=== PATIENT | male | born 1935 | race Caucasian/White ===

== ENCOUNTER → 2018-12-29 10:26 | Outpatient (CLI) | payer MEDICARE, OTHER, SELFPAY ==
--- NOTE | 2018-12-29 | DI.CT.S_ITS ---
PROCEDURE: CT CHEST WO CON INDICATIONS: ASTHMA BRONCHIECTASIS TECHNIQUE: Noncontrast 5 mm thick sections acquired from the pulmonary apices to the posterior costophrenic angles. 1 mm lung window, 5 mm thick coronal and sagittal and 7 mm axial MIP reformats were then acquired. For radiation dose reduction, the following was used: automated exposure control, adjustment of mA and/or kV according to patient size. COMPARISON: [facility], CT, THORAX WITH CONTRAST, 08/12/2006, 9:05. FINDINGS: Image quality: Excellent. Lungs and pleura: No acute consolidation is seen. There is ill-defined presumed scarring/atelectasis involving the right lung base although some areas of ill-defined 7 mm nodularity for example image 23 series 3 Sub-5 mm groundglass nodule seen in the right midlung unchanged, image 159. Biapical scarring also noted. There is central airway thickening. Mild right lower lobe bronchiolectasis. 3 mm nodule seen in the anterior left upper lobe is unchanged.. No pleural effusions or pneumothorax. Central and peripheral airways are patent and normal in caliber. Mediastinum: Heart size is normal. No pericardial effusion. Coronary artery calcifications are present. No mediastinal adenopathy by size criteria. Enlargement of the ascending thoracic aorta measuring 4.0 cm although can be within physiologic range. pulmonary arteries are normal in size. Esophagus is normal in caliber. No hiatal hernia. Bones and chest wall: No suspicious bony lesions. No vertebral body compression fractures. No axillary or supraclavicular adenopathy by size criteria. Thyroid gland negative. Abdomen: Visualized upper abdominal solid organs and bowel loops appear normal in the absence of contrast. Simple appearing left renal cysts. IMPRESSION: Scattered presumed postinflammatory scarring and atelectasis. Ill-defined nodular appearance could be scarring in the right lung base as above although recommend followup with three-month interval noncontrast chest CT given the absence of relevant comparison studies to exclude malignant or metastatic pulmonary nodule. Diffuse airway thickening, suggestive of reactive airways disease and/or nonspecific bronchitis. Coronary artery disease. Dictated by: Christ Cabrera M.D. on 12/29/2018 at 14:02 Approved by: Christ Cabrera M.D. on 12/29/2018 at 14:10
== END ==
PROVIDERS: Family Provider Family Medicine; PCP Family Medicine; Visit Provider Internal Medicine
DX: J47.1 Bronchiectasis with (acute) exacerbation (principal); J45.909 Unspecified asthma, uncomplicated; I25.10 Atherosclerotic heart disease of native coronary artery without angina pectoris
CPT/HCPCS: 71250

== ENCOUNTER → 2019-01-18 10:16 | Outpatient (CLI) | payer MEDICARE, OTHER, SELFPAY ==
--- NOTE | 2019-01-18 10:23 | DI.CT.S_ITS ---
PROCEDURE: CT SINUS SCREEN WO CON INDICATIONS: CHRONIC HEADACHES TECHNIQUE: Noncontrast 3.0 mm axial images acquired from the frontal sinuses to the mid-sella, with coronal and sagittal reformats. For radiation dose reduction, the following was used: automated exposure control, adjustment of mA and/or kV according to patient size. COMPARISON: None. FINDINGS: Image quality: Excellent. Maxillary Sinuses: Moderate mucosal thickening is seen within the right maxillary sinus with mild to moderate mucosal thickening seen on the left. There is mild demineralization seen of the medial grant of the maxillary sinuses. Ethmoid Air Cells: There is moderate mucosal thickening seen. There is demineralization of the grant of the ethmoid air cells. Sphenoid Sinuses: No bony remodeling or destruction. Minimal mucosal thickening is seen. Frontal Sinuses: No bony remodeling or destruction. Mild mucosal thickening is seen inferiorly. Ostiomeatal Complexes: Ostiomeatal complexes are opacified with soft tissue thickening. There is demineralization of the uncinate processes. Miscellaneous: Visualized intra-orbital contents are normal. No radha bullosa or paradoxical turbinate curvature. No nasal septal deviation. Likely polyps are seen within the right nasal cavity. IMPRESSION: Widespread paranasal sinus disease, which is most prominent within the right maxillary sinus. Areas of demineralization are seen, which are compatible with chronic sinusitis. Dictated by: Yamil Brady M.D. on 01/18/2019 at 10:36 Approved by: Yamil Brady M.D. on 01/18/2019 at 10:39
== END ==
PROVIDERS: Family Provider Family Medicine; PCP Family Medicine; Visit Provider Internal Medicine
DX: J34.9 Unspecified disorder of nose and nasal sinuses (principal)
CPT/HCPCS: 70486

== ENCOUNTER → 2019-03-01 13:34 | Outpatient (CLI) | payer MEDICARE, OTHER, SELFPAY ==
--- NOTE | 2019-03-01 | DI.CT.S_ITS ---
PROCEDURE: CT CHEST WO CON INDICATIONS: Pulmonary eosinophilia, not elsewhere classified TECHNIQUE: Noncontrast 2.0-2.5 mm thick sections acquired from the pulmonary apices to the posterior costophrenic angles. 7 mm thick axial MIP and 5 mm coronal and sagittal reformats were then acquired. A low radiation dose technique was utilized. COMPARISON: [facility], CT, THORAX WITH CONTRAST, 08/12/2006, 9:05. [facility], CT, CT CHEST WO CON, 12/29/2018, 11:03. FINDINGS: Image quality: Diagnostic, given the low radiation dose technique. Lungs and pleura: Stable appearance of 2 mm nodule left upper lobe pulmonary nodule image 82 series 3, probably dating back to 2006. Diffuse central airway thickening. Scattered subsegmental atelectasis and/or scarring. No focal consolidation. There is interval resolution of previously described ill-defined nodular appearance involving the right lung base therefore presumably reflecting resolved inflammatory etiology. No pleural effusion or pneumothorax. Mediastinum: Heart size is normal. No pericardial effusion. Coronary artery calcifications are present. No mediastinal adenopathy by size criteria. Thoracic aorta and central pulmonary arteries are normal in size. Esophagus is normal in caliber. No hiatal hernia. Bones and chest wall: No suspicious bony lesions. No vertebral body compression fractures. No axillary or supraclavicular adenopathy by size criteria. Thyroid gland unremarkable. Abdomen: A presumed simple appearing left renal cyst although not entirely included in the study and technically indeterminate IMPRESSION: Interval resolution of ill-defined right lung base nodular appearance therefore reflecting resolved inflammatory/infectious etiology since 12/29/18. No new focal consolidation. Scattered subsegmental scarring/atelectasis. Dictated by: Christ Cabrera M.D. on 03/01/2019 at 16:18 Approved by: Christ Cabrera M.D. on 03/01/2019 at 16:24
== END ==
PROVIDERS: Family Provider Family Medicine; PCP Family Medicine; Visit Provider Internal Medicine
DX: J82 Pulmonary eosinophilia, not elsewhere classified (principal); R91.1 Solitary pulmonary nodule
CPT/HCPCS: 71250

== ENCOUNTER → 2020-10-05 11:37 | Outpatient (CLI) | payer MEDICARE, OTHER, SELFPAY ==
[2020-10-05 19:04] LABS: Add Manual Diff / Slide Review NO; Basophils Absolute Auto 100 /uL (0-100); Eosinophils Absolute Auto 100 /uL (0-450); Eosinophils Percent Auto 1.8 % (2-4); Lymphocytes Absolute Auto 1700 /uL (1100-4500); Lymphocytes Percent Auto 26.7 % (25-40); Mean Corpuscular HGB Conc 32.6 % (30-36); Mean Corpuscular Hemoglobin 30.4 PG (26-34); Mean Corpuscular Volume 93.2 fL (80-100); Monocytes Absolute Auto 600 /uL (0-900); Monocytes Percent Auto 9.6 % (3-14); Neutrophils Absolute Auto 3800 /uL (1500-7000); Neutrophils Percent Auto 60.9 % (50-75); Platelet Count 322 X10^3/uL (150-400); Red Blood Cell Count 4.29 X10^6/uL (4.5-5.9); Red Cell Distribution Width 13.7 % (11.6-14.8); White Blood Cell Count 6.3 X10^3/uL (4.5-11.0)
[2020-10-05 19:09] LABS: Alanine Aminotransferase 16 IU/L (<50); Albumin 4.1 g/dL (3.5-5.0); Albumin Globulin Ratio 1.3 (1.0-2.8); Alkaline Phosphatase 60 U/L (38-126); Aspartate Aminotransferase 30 IU/L (17-59); BUN Creatinine Ratio 26.3 (6-22); Bilirubin Total 0.6 mg/dL (0.2-1.3); Blood Urea Nitrogen 25 mg/dL (9-20); Carbon Dioxide 28 mmol/L (22-32); Chloride 103 mmol/L (98-107); Cholesterol 200 mg/dL (140-199); Estimated Glomerular Filt Rate > 60.0 mL/min (>60); Globulin 3.1 g/dL (1.7-4.1); Glucose 79 mg/dL (80-110); HDL Cholesterol 84 mg/dL (40-60); HEMOLYSIS < 15 (0-50); LDL Cholesterol Calculated 107 mg/dL (<100); Potassium 5.2 mmol/L (3.4-5.1); Sodium 137 mmol/L (137-145); Total Protein 7.2 g/dL (6.3-8.2); Triglycerides 46 mg/dL (35-150)
[2020-10-08 11:02] LABS: Prostate Specific Antigen 2.99 ng/mL (0.10-4.00)
== END ==
PROVIDERS: Family Provider Family Medicine; PCP Family Medicine; Visit Provider Family Medicine
DX: I95.9 Hypotension, unspecified (principal); R35.1 Nocturia; R07.89 Other chest pain; R20.0 Anesthesia of skin; N40.1 Benign prostatic hyperplasia with lower urinary tract symptoms
CPT/HCPCS: 80053; 80061; 84153; 85025

== ENCOUNTER → 2020-11-27 09:30 | Outpatient (CLI) | payer MEDICARE, OTHER, SELFPAY ==
[2020-11-27 10:49] LABS: Add Manual Diff / Slide Review NO; Basophils Absolute Auto 100 /uL (0-100); Eosinophils Absolute Auto 200 /uL (0-450); Eosinophils Percent Auto 2.7 % (2-4); Hematocrit 39.6 % (41-53); Lymphocytes Absolute Auto 1800 /uL (1100-4500); Lymphocytes Percent Auto 26.2 % (25-40); Mean Corpuscular HGB Conc 32.9 % (30-36); Mean Corpuscular Hemoglobin 30.4 PG (26-34); Mean Corpuscular Volume 92.5 fL (80-100); Monocytes Absolute Auto 700 /uL (0-900); Monocytes Percent Auto 9.4 % (3-14); Neutrophils Absolute Auto 4100 /uL (1500-7000); Neutrophils Percent Auto 59.7 % (50-75); Platelet Count 303 X10^3/uL (150-400); Red Blood Cell Count 4.28 X10^6/uL (4.5-5.9); Red Cell Distribution Width 13.6 % (11.6-14.8); White Blood Cell Count 6.9 X10^3/uL (4.5-11.0)
== END ==
PROVIDERS: Family Provider Family Medicine; PCP Family Medicine; Referring Provider Allergy & Immunology; Visit Provider Allergy & Immunology
DX: J31.0 Chronic rhinitis (principal); J45.40 Moderate persistent asthma, uncomplicated; D72.19 Other eosinophilia
CPT/HCPCS: 36415; 85025

== ENCOUNTER → 2021-12-04 09:41 | Outpatient (CLI) | payer MEDICARE, OTHER, SELFPAY ==
[2021-12-04 20:37] LABS: Add Manual Diff / Slide Review NO; Basophils Absolute Auto 100 /uL (0-100); Basophils Percent Auto 1.1 % (0-2); Eosinophils Absolute Auto 200 /uL (0-450); Eosinophils Percent Auto 2.7 % (2-4); Hematocrit 37.3 % (41-53); Hemoglobin 12.4 g/dL (13.5-17.5); Lymphocytes Absolute Auto 1600 /uL (1100-4500); Mean Corpuscular HGB Conc 33.4 % (30-36); Mean Corpuscular Hemoglobin 30.6 PG (26-34); Mean Corpuscular Volume 91.7 fL (80-100); Monocytes Absolute Auto 600 /uL (0-900); Monocytes Percent Auto 10.3 % (3-14); Neutrophils Absolute Auto 3800 /uL (1500-7000); Neutrophils Percent Auto 60.9 % (50-75); Platelet Count 296 X10^3/uL (150-400); Red Blood Cell Count 4.07 X10^6/uL (4.5-5.9); White Blood Cell Count 6.2 X10^3/uL (4.5-11.0)
[2021-12-04 20:49] LABS: Hemoglobin A1C% w Est Avg Glu 5.2 % (4.0-6.0)
[2021-12-05 04:44] LABS: Alanine Aminotransferase 14 IU/L (<50); Albumin 4.1 g/dL (3.5-5.0); Albumin Globulin Ratio 1.6 (1.0-2.8); Alkaline Phosphatase 58 U/L (38-126); Aspartate Aminotransferase 28 IU/L (17-59); BUN Creatinine Ratio 22.3 (6-22); Bilirubin Total 0.8 mg/dL (0.2-1.3); Blood Urea Nitrogen 23 mg/dL (9-20); Calcium 9.1 mg/dL (8.4-10.2); Carbon Dioxide 26 mmol/L (22-32); Chloride 106 mmol/L (98-107); Cholesterol 171 mg/dL (140-199); Estimated Glomerular Filt Rate > 60 mL/min (>60); Globulin 2.6 g/dL (1.7-4.1); Glucose 89 mg/dL (80-110); HDL Cholesterol 76 mg/dL (40-60); HEMOLYSIS < 15 (0-50); LDL Cholesterol Calculated 87 mg/dL (<100); Potassium 4.8 mmol/L (3.4-5.1); Sodium 139 mmol/L (137-145); Total Protein 6.7 g/dL (6.3-8.2); Triglycerides 41 mg/dL (35-150)
[2021-12-05 05:53] LABS: Prostate Specific Antigen Scrn 2.75 ng/mL (0.1-4.0)
[2021-12-05 05:57] LABS: Ferritin 154 ng/mL (18-464)
[2021-12-05 06:12] LABS: Vitamin B12 925 pg/mL (239-931)
[2021-12-12 00:07] LABS: Percent Free Testosterone 1.35 % (1.50-4.20); Testosterone Free 4.85 ng/dL (5.00-21.00); Testosterone Total 359.5 ng/dL (264.0-916.0)
== END ==
PROVIDERS: Family Provider Family Medicine; PCP Physician Assistant; Visit Provider Physician Assistant
DX: N52.9 Male erectile dysfunction, unspecified (principal); E29.1 Testicular hypofunction; Z13.1 Encounter for screening for diabetes mellitus; Z12.5 Encounter for screening for malignant neoplasm of prostate; G62.9 Polyneuropathy, unspecified; R68.82 Decreased libido; Z13.220 Encounter for screening for lipoid disorders
CPT/HCPCS: 80053; 80061; 82607; 82728; 83036; 84402; 84403; 85025; G0103

== ENCOUNTER → 2021-12-23 11:06 | Outpatient (CLI) | payer MEDICARE, OTHER, SELFPAY ==
[2021-12-23 19:58] LABS: HEMOLYSIS < 15 (0-50); Iron 111 ug/dL (49-181)
[2021-12-23 20:10] LABS: Percent Iron Saturation 45 % (20-50); Total Iron Binding Capacity 248 ug/dL (261-462); Transferrin 198 mg/dL (206-381)
[2021-12-26 14:47] LABS: Albumin 3.9 g/dL (2.9-4.4); Alpha 1 Globulin 0.2 g/dL (0.0-0.4); Alpha 2 Globulin 0.6 g/dL (0.4-1.0); Beta 1 Globulin 0.9 g/dL (0.7-1.3); Protein, Total 6.7 g/dL (6.0-8.5)
== END ==
PROVIDERS: Family Provider Family Medicine; PCP Family Medicine; Visit Provider Family Medicine
DX: D64.9 Anemia, unspecified (principal); E29.1 Testicular hypofunction; G62.9 Polyneuropathy, unspecified; J82.83 Eosinophilic asthma; N52.9 Male erectile dysfunction, unspecified; R07.2 Precordial pain; R68.82 Decreased libido
CPT/HCPCS: 83540; 83550; 84155; 84165

== ENCOUNTER → 2022-02-18 09:46 | Outpatient (CLI) | payer MEDICARE, OTHER, SELFPAY ==
--- NOTE | 2022-02-18 09:49 | DI.NM.S_ITS ---
PROCEDURE: NM NAILA PERF SPECT REST & STR Rest and exercise myocardial perfusion SPECT with gated imaging and ejection fraction RADIOPHARMACEUTICAL: 12.9 mCi Tc-99m sestamibi IV at rest and 25.7 mCi Tc-99m sestamibi IV at peak exercise. A one day-protocol was performed. INDICATIONS: chest pain with exertion TECHNIQUE: Radiopharmaceutical was injected at peak stress test, and also at rest. SPECT images were obtained. SPECT myocardial perfusion images were displayed in short axis, horizontal long axis, and vertical long axis views. Gated images were reviewed using [employer] software. COMPARISON: None. CARDIAC STRESS: A standard Main treadmill exercise tolerance test was performed by the patient under the supervision of an attending staff. The patient exercised for 7 minutes and 1 seconds; functional aerobic impairment (GIACOMO) is -49%. Hemodynamic data: There is normal blood pressure and heart rate response to exercise stress. Patient achieved 87% of maximum predicted heart rate at peak exercise. Symptoms: Patient denied chest pain during exercise. EKG: No diagnostic EKG changes of ischemia; no ectopy. FINDINGS: Raw data: There is good myocardial labeling by radiotracer. No significant motion artifacts. Hgbg-[id number] ratio is 0.25 (normal is less than 0.38 for sestamibi tracer, and less than 0.50 for thallium tracer). Left ventricle function: Gated images demonstrate normal left ventricle wall thickening. No segmental wall motion abnormality. No transient ischemic dilation; TID is 0.98 (normal less than 1.3). The left ventricle resting end-diastolic volume is 88 mL. Left ventricle stress ejection fraction is 83%; normal values are above 45%. Myocardial perfusion: Mildly intense fixed inferior wall defect that resolves with prone imaging suggesting diaphragmatic attenuation artifact. No ischemia and no prior infarction. IMPRESSION: Low risk, normal treadmill nuclear stress test 1) No perfusion evidence of ischemia or infarction. Mildly intense fixed inferior wall defect that resolves with prone imaging suggesting diaphragmatic attenuation artifact. 2) Normal left ventricular size, wall motion, and systolic function (EF post stress 83%). 3) No angina during the study. 4) No ST changes with exercise. 5) Excellent exercise capacity (10.1METs, GIACOMO -49%). Target heart rate achieved. Appropriate BP response to exercise. 6) No prior nuclear stress test available for comparison. Dictated by: Lizbeth Cantu MD on 02/19/2022 at 13:38 Approved by: Lizbeth Cantu MD on 02/19/2022 at 13:41
[2022-02-18 11:37] LABS: COVID19 -Nasal RAPID Negative (Negative)
== END ==
PROVIDERS: Family Provider Family Medicine; PCP Family Medicine; Referring Provider Family Medicine; Visit Provider Family Medicine
DX: R07.2 Precordial pain (principal); G62.9 Polyneuropathy, unspecified; D64.9 Anemia, unspecified; J82.83 Eosinophilic asthma; N52.9 Male erectile dysfunction, unspecified; R68.82 Decreased libido; E29.1 Testicular hypofunction; Z20.822 Contact with and (suspected) exposure to COVID-19
CPT/HCPCS: 78452; 87635; 93017; A9502

== ENCOUNTER → 2022-03-24 11:48 | Outpatient (CLI) | payer MEDICARE, OTHER, SELFPAY ==
[2022-03-26 11:54] LABS: Fecal Immunochemical Test Negative (Negative)
== END ==
PROVIDERS: Family Provider Family Medicine; PCP Family Medicine; Visit Provider Family Medicine
DX: D64.9 Anemia, unspecified (principal); E29.1 Testicular hypofunction; G62.9 Polyneuropathy, unspecified; J82.83 Eosinophilic asthma; N52.9 Male erectile dysfunction, unspecified; R07.2 Precordial pain; R68.82 Decreased libido
CPT/HCPCS: 82274

== ENCOUNTER → 2022-05-05 15:25 | Outpatient (CLI) | payer MEDICARE, OTHER, SELFPAY ==
[2022-05-05 17:33] LABS: Add Manual Diff / Slide Review NO; Basophils Absolute Auto 200 /uL (0-100); Basophils Percent Auto 2.2 % (0-2); Eosinophils Absolute Auto 200 /uL (0-450); Eosinophils Percent Auto 2.3 % (2-4); Hematocrit 37.6 % (41-53); Hemoglobin 12.8 g/dL (13.5-17.5); Lymphocytes Absolute Auto 2000 /uL (1100-4500); Lymphocytes Percent Auto 27.1 % (25-40); Mean Corpuscular Hemoglobin 31.2 PG (26-34); Mean Corpuscular Volume 91.6 fL (80-100); Monocytes Absolute Auto 600 /uL (0-900); Monocytes Percent Auto 7.7 % (3-14); Neutrophils Absolute Auto 4500 /uL (1500-7000); Neutrophils Percent Auto 60.7 % (50-75); Platelet Count 328 X10^3/uL (150-400); White Blood Cell Count 7.4 X10^3/uL (4.5-11.0)
[2022-05-05 18:52] LABS: C-Reactive Protein Quant < 0.5 mg/dL (<1.0)
[2022-05-05 19:55] LABS: HIV 1 & 2 Ab/Ag 4th Gen Combo NEGATIVE (NEGATIVE); Hep C Virus Ab w/Reflex Quant NEGATIVE s/c (NEGATIVE)
[2022-05-05 21:10] LABS: Erythrocyte Sedimentation Rate 8 MM/HR (0-15)
[2022-05-06 16:33] LABS: Prostate Specific Antigen Scrn 3.63 ng/mL (0.1-4.0)
[2022-05-06 17:51] LABS: Free T4, Direct Thyroxine 1.26 ng/dL (0.78-2.19)
[2022-05-07 17:24] LABS: Arsenic 1 ug/L (0-9); Mercury, Blood 1.9 ug/L (0.0-14.9)
[2022-05-08 13:47] LABS: ANA Screen, IFA Negative (.)
[2022-05-10 13:22] LABS: Vitamin B6 12.7 ug/L (3.4-65.2)
[2022-05-14 13:27] LABS: Percent Free Testosterone 3.06 % (1.50-4.20); Testosterone Free 20.58 ng/dL (5.00-21.00); Testosterone Total 672.7 ng/dL (264.0-916.0)
== END ==
PROVIDERS: Family Provider Family Medicine; PCP Family Medicine; Referring Provider Family Medicine; Visit Provider Family Medicine
DX: D64.9 Anemia, unspecified (principal); N52.9 Male erectile dysfunction, unspecified; Z12.5 Encounter for screening for malignant neoplasm of prostate; E29.1 Testicular hypofunction; G62.9 Polyneuropathy, unspecified; R68.82 Decreased libido
CPT/HCPCS: 36415; 82175; 83655; 83825; 84207; 84402; 84403; 84439; 85025; 85651; 86038; 86140; 86617; 86803; 87389; G0103

== ENCOUNTER → 2023-02-16 13:41 | Outpatient (CLI) | payer MEDICARE, OTHER, SELFPAY ==
[2023-02-16 19:36] LABS: Add Manual Diff / Slide Review NO; Basophils Absolute Auto 100 /uL (0-100); Basophils Percent Auto 1.1 % (0-2); Eosinophils Absolute Auto 100 /uL (0-450); Eosinophils Percent Auto 0.9 % (2-4); Hematocrit 38.5 % (41-53); Hemoglobin 12.8 g/dL (13.5-17.5); Lymphocytes Absolute Auto 1400 /uL (1100-4500); Lymphocytes Percent Auto 19.5 % (25-40); Mean Corpuscular HGB Conc 33.3 % (30-36); Mean Corpuscular Hemoglobin 30.7 PG (26-34); Mean Corpuscular Volume 92.2 fL (80-100); Monocytes Absolute Auto 500 /uL (0-900); Monocytes Percent Auto 7.8 % (3-14); Neutrophils Absolute Auto 4900 /uL (1500-7000); Neutrophils Percent Auto 70.7 % (50-75); Platelet Count 284 X10^3/uL (150-400); Red Blood Cell Count 4.18 X10^6/uL (4.5-5.9)
[2023-02-16 20:02] LABS: Alanine Aminotransferase 16 IU/L (<50); Albumin 4.2 g/dL (3.5-5.0); Albumin Globulin Ratio 1.6 (1.0-2.8); Alkaline Phosphatase 52 U/L (38-126); Aspartate Aminotransferase 25 IU/L (17-59); BUN Creatinine Ratio 17.8 (6-22); Bilirubin Total 0.6 mg/dL (0.2-1.3); Blood Urea Nitrogen 18 mg/dL (9-20); Calcium 9.8 mg/dL (8.4-10.2); Carbon Dioxide 28 mmol/L (22-32); Chloride 101 mmol/L (98-107); Cholesterol 172 mg/dL (140-199); Estimated Glomerular Filt Rate > 60 mL/min (>60); Globulin 2.7 g/dL (1.7-4.1); Glucose 89 mg/dL (80-110); HDL Cholesterol 75 mg/dL (40-60); HEMOLYSIS < 15 (0-50); LDL Cholesterol Calculated 83 mg/dL (<100); Potassium 5.2 mmol/L (3.4-5.1); Sodium 137 mmol/L (137-145); Total Protein 6.9 g/dL (6.3-8.2); Triglycerides 68 mg/dL (35-150)
[2023-02-16 20:16] LABS: TSH w/ Reflex to FT4 2.23 uIU/mL (0.47-4.68)
[2023-02-16 20:31] LABS: Prostate Specific Antigen 2.68 ng/mL (0.10-4.00)
[2023-02-24 15:34] LABS: Percent Free Testosterone 1.52 % (1.50-4.20); Testosterone Free 7.88 ng/dL (5.00-21.00); Testosterone Total 518.5 ng/dL (264.0-916.0)
== END ==
PROVIDERS: Family Provider Family Medicine; PCP Family Medicine; Visit Provider Family Medicine
DX: R35.1 Nocturia (principal); I25.10 Atherosclerotic heart disease of native coronary artery without angina pectoris; I10 Essential (primary) hypertension; E29.1 Testicular hypofunction; I48.91 Unspecified atrial fibrillation; J82.83 Eosinophilic asthma; D64.9 Anemia, unspecified; N52.9 Male erectile dysfunction, unspecified; G62.9 Polyneuropathy, unspecified; M54.2 Cervicalgia; G89.29 Other chronic pain; R68.82 Decreased libido; Z79.890 Hormone replacement therapy; Z87.438 Personal history of other diseases of male genital organs
CPT/HCPCS: 80053; 80061; 84153; 84402; 84403; 84443; 85025

== ENCOUNTER → 2023-08-12 11:04 | Outpatient (CLI) | payer MEDICARE, OTHER, SELFPAY ==
--- NOTE | 2023-08-12 11:30 | DI.MRI.S_ITS ---
PROCEDURE: MR CERVICAL SPINE WO CON INDICATIONS: cervical radiuculopathy TECHNIQUE: Noncontrast sagittal T1 spin echo and T2 fast spin echo, sagittal STIR, foraminal oblique sagittal T2 fast spin echo, and axial gradient echo or T2 fast spin echo through the cervical spine. COMPARISON: None. FINDINGS: Image quality: Excellent. Alignment and Curvature: Straightening of the normal cervical lordosis. Minimal anterolisthesis of C7 on T1 and T1 on T2. Bone Marrow: Ankylosis of the C4 through C6 vertebral bodies. Modic type 3 degenerative endplate changes at C6-C7. Marrow demonstrates normal overall signal. Spinal Cord: Visualized spinal cord has normal size and signal. No cerebellar tonsillar herniation. Paraspinous Soft Tissues: No paravertebral masses. Prevertebral soft tissues are normal in thickness. C2-C3: Disc desiccation height loss. Minimal posterior disc osteophyte complex. No central canal stenosis. Facet and uncovertebral arthropathy. Moderate right and mild left neural foraminal stenosis. C3-C4: Disc desiccation height loss. Posterior disc osteophyte complex. Mild central canal stenosis. Facet and uncovertebral arthropathy. Severe right and moderate left neural foraminal stenosis. C4-C5: Ankylosis. No central canal stenosis. Facet and uncovertebral arthropathy. Mild bilateral neural foraminal stenosis. C5-C6: Ankylosis. No central canal stenosis. Facet and uncovertebral arthropathy. Mild bilateral neural foraminal stenosis. C6-C7: Disc desiccation height loss. Minimal posterior disc osteophyte complex. No significant central canal stenosis. Facet and uncovertebral arthropathy. Moderate left and mild right neural foraminal stenosis. C7-T1: Disc desiccation and height loss. No central canal stenosis. Facet and uncovertebral arthropathy. Moderate right and mild left neural foraminal stenosis. IMPRESSION: 1. Multilevel degenerative changes of the cervical spine as described above. 2. Mild central canal stenosis at C3-C4. Otherwise, no significant central canal stenosis. 3. Severe neural foraminal stenosis on the right at C3-C4. Additional levels of mild and moderate neural foraminal stenosis as above. Dictated by: Aayush Blue M.D. on 08/12/2023 at 14:40 Approved by: Aayush Blue M.D. on 08/12/2023 at 14:45
== END ==
LOC: MRI 11:05
PROVIDERS: Family Provider Family Medicine; PCP Family Medicine; Referring Provider Family Medicine; Visit Provider Family Medicine
DX: M47.22 Other spondylosis with radiculopathy, cervical region; M48.02 Spinal stenosis, cervical region; M54.2 Cervicalgia; G89.29 Other chronic pain
CPT/HCPCS: 72141

== ENCOUNTER → 2024-03-25 08:38 | Outpatient (CLI) | payer MEDICARE, OTHER, SELFPAY ==
--- NOTE | 2024-03-25 | DI.CT.S_ITS ---
PROCEDURE: CT CHEST ABD PEL W CON INDICATIONS: Abnormal weight loss TECHNIQUE: After the administration of intravenous contrast, 5 mm thick sections acquired from the lung apices to the symphysis. 5 mm coronal and sagittal reformats were performed, with additional 7 mm MIP reformats through the lungs. For radiation dose reduction, the following was used: automated exposure control, adjustment of mA and/or kV according to patient size. COMPARISON: [facility], CT, CT CHEST WO CON, 03/01/2019, 13:38. FINDINGS: Image quality: Diagnostic CHEST: Lower Neck: No enlarged lymph nodes. Thyroid: No thyroid nodules which require sonographic follow up, per consensus guidelines. Axillae: No enlarged lymph nodes. Chest Wall: Unremarkable. Lungs and Pleura: 5 mm nodule within the medial left lung apex (series 5, image 53) is unchanged compared to previous chest CT dating back to 03/01/2019. Collapse of the medial segment the right middle lobe with inspissated material within the associated central right middle lobe bronchus. Similar appearance with endobronchial soft tissue opacifying the medial and lateral segmental bronchi of right middle lobe was also demonstrated on 03/01/[address] There is slightly improved aeration within these bronchi compared to the previous study, however, peripherally could the medial segment of the right middle lobe is completely collapsed with associated volume loss. Area of tree-in-bud micronodularity within the posterolateral right upper lobe (series 5, image 128) No new pulmonary nodules or masses. No evidence of pneumothorax or pleural effusion. Heart: Heart size is normal. No pericardial effusion. Moderate degree of coronary artery vascular calcifications. Thoracic Vessels: Mild ectasia of the ascending aorta measuring 4.1 cm in greatest diameter. Remainder of the thoracic aorta appears unremarkable. Pulmonary artery is normal in caliber without central intraluminal filling defect. Mediastinum and Vangie: No enlarged lymph nodes. Esophagus: No wall thickening. No hiatal hernia. ABDOMEN: Liver: No solid mass. Gallbladder: No radiopaque gallstones or wall thickening. Biliary ducts: No biliary dilation. Pancreas: No focal mass lesion. Mild prominence of pancreatic duct measuring 3-4 mm in greatest diameter. No inflammatory changes. Spleen: Size is within normal limits. Adrenal Glands: No adrenal nodules. Kidneys and Ureters: No hydronephrosis. No solid mass. No complex renal cystic lesion which requires follow up. Stomach and Bowel: Small large bowel appear normal in caliber without evidence of bowel obstruction. Extensive diverticulosis the sigmoid colon without evidence of diverticulitis Peritoneum: No abnormal intraperitoneal fluid. No free air. Ventral Wall: Small umbilical hernia containing fat. Abdominal Nodes: No retroperitoneal or mesenteric adenopathy by size criteria. Vessels: Aorta and inferior vena cava are normal in size. PELVIS: Pelvic Organs: Moderate prostatomegaly. Bladder: Mild degree of diffuse bladder wall thickening possibly sequelae of bladder outlet obstruction. Pelvic Nodes: No enlarged lymph nodes. Miscellaneous: Small right femoral hernia containing loop of nonobstructed small bowel. Bones: No aggressive osseous abnormality. Left L5 pars defect. IMPRESSION: 1. Collapse of the medial segment right middle lobe associated with endobronchial inspissated soft tissue and additional inspissated material throughout the central right middle lobe bronchi with slightly improved aeration of the lateral segment compared to prior chest CT of 03/01/2019. Findings possibly related to chronic aspiration or inflammatory or infectious bronchitis. And underlying endobronchial mass in this location is not entirely excluded and if indicated, correlation with bronchoscopy is advised. 2. Tree-in-bud opacity within the posterolateral right upper lobe most likely respiratory bronchiolitis. 3. Extensive diverticulosis of the sigmoid colon without evidence of diverticulitis. No acute abnormality within the abdomen or pelvis. Dictated by: Ermias Marshall M.D. on 03/25/2024 at 15:09 Approved by: Ermias Marshall M.D. on 03/25/2024 at 15:40
[2024-03-25 09:16] LABS: Estimated Glomerular Filt Rate > 60 mL/min (>60)
== END ==
PROVIDERS: Radiology Vascular & Interventional Radiology; PCP Family Medicine; Referring Provider Internal Medicine; Visit Provider Internal Medicine
DX: J98.19 Other pulmonary collapse (principal); K57.30 Diverticulosis of large intestine without perforation or abscess without bleeding; R63.4 Abnormal weight loss; R91.1 Solitary pulmonary nodule; I25.10 Atherosclerotic heart disease of native coronary artery without angina pectoris; K42.9 Umbilical hernia without obstruction or gangrene; N40.0 Benign prostatic hyperplasia without lower urinary tract symptoms; K41.90 Unilateral femoral hernia, without obstruction or gangrene, not specified as recurrent
CPT/HCPCS: 36415; 71260; 74177; 82565; Q9967

== ENCOUNTER 2024-06-16 09:02 | Outpatient (CLI) | payer MEDICARE, OTHER, SELFPAY ==
[2024-06-16] VITALS (8 sets, daily range): BP systolic 115–145; BP diastolic 67–82; PULSE 60–69; RESP 16–21; TEMP 36; O2SAT 95–100
--- NOTE | 2024-06-16 09:03 | DI.RAD.S_ITS ---
PROCEDURE: PAIN C/T INTERLAMINAR INJECT INDICATIONS: C6/7 TL DENI COMPARISON: None. FINDINGS/IMPRESSION: Fluoroscopic spot filming was performed to verify placement of spinal needles at the C6-7 level(s), as labeled on the films. Appropriate location(s) of the needle tip(s) was confirmed by injection of iodinated contrast. Dictated by: Lucas Castellano M.D. on 06/16/2024 at 11:35 Approved by: Lucas Castellano M.D. on 06/16/2024 at 11:36
[2024-06-16] MEDS: MIDAZOLAM 2 MG/2 ML VIAL 1 MG IV (09:37)
[2024-06-16] MEDS: iopamidoL 15 ML VIAL 3 ML INJ (09:41)
[2024-06-16] MEDS: BUPIVACAINE 0.25% (PF) VIAL 2 ML INJ (09:41)
[2024-06-16] MEDS: DEXAMETHASONE 10 MG/ML VIAL 20 MG INJ (09:42)
--- NOTE | 2024-06-16 09:53 | P.PCN_ITS ---
Date/Time/Diagnoses Date of procedure: 06/16/24 Time of procedure: 09:53 Pre-procedure diagnosis: 1. CERVICAL STENOSIS, 2. CERVICAL HNP WITH UPPER EXTREMITY RADICULAR FEATURES Post-procedure diagnosis: same Procedure Notes Procedure: 1. FLUORSCOPICALLY GUIDED CONTRAST CONTROLLED INTERLAMINAR EPIDURAL STEROID INJECTION - C6/7 TL DENI Indications: Marco A is referred by Dr. Bashir for treatment of Cervical HNP with Upper Extremity Paresthesias. Physician: Juan Ballard Total Fluoroscopy time (seconds): 28 Total sedation minutes: 12 Complications: none Procedure in detail & Post-procedure care: FINDINGS Cervical Stenosis due to disc deterioration and nerve root irritation and nerve root irritation DESCRIPTION OF PROCEDURE Fluoroscopically guided, contrast-controlled C6/7 translaminar epidural steroid injection with conscious sedation. Following review of allergy and review of potential side effects and complications, including, but not necessarily limited to, infection, allergic reaction, local tissue breakdown, temporary as well as permanent nerve injury, stroke, paralysis, and possible , the patient indicated that patient understood and agreed to proceed. An informed consent document was signed by the patient, witnessed by a nurse, and placed in the patient's chart. Additionally, other treatment options including modalities, medications, and physical therapy were reviewed with the patient. After review of previous anaesthesic history and IV conscious sedation the patient was deemed safe to proceed with today?s procedure with IV conscious sedation as ASA class II designation. Safety time-out was performed to confirm patient ID, procedure to be performed and site of procedure. IV sedation was accomplished with a combination of 2mg of Versed administered by the RN after DO order, titrated to patient comfort during the course of the procedure while the patient remained responsive to all verbal commands. In the prone position, following sterile prep and drape of the cervical region, the C6/7 translaminar space was identified fluoroscopically. The skin was anesthetized via a 25-gauge 1.5-inch needle with 1% lidocaine solution. At this point, a 25-gauge, 2.5-inch short bevel spinal needle was atraumatically introduced and advanced under fluoroscopic guidance into epidural space at the C6/7 translaminar space. Depth was confirmed on lateral view. Radiological data, including multiple fluoroscopic views of the cervical spine, reveal a spinal needle at the C6/7 translaminar space. Lateral views then show placement of the needle in the epidural space. Subsequent views show contrast material flowing superiorly and inferiorly in the epidural space. DSA fluoroscopy with live contrast injection, once again, confirmed no vascular or intrathecal uptake. At this point, using loss of resistance technique with saline and air, the epidural space was entered. Following negative aspiration, injection of approximately 1.5 cc of Isovue-200 with live fluoroscopy in the AP view confirmed epidural flow in the epidural space without vascular or intrathecal uptake observed. Subsequently, a test dose of 1 cc of 1% lidocaine solution was injected and patient was observed for two minutes without signs or symptoms of complications, including abdominal pain, shortness of breath, bilateral upper or lower extremity weakness, nausea and vomiting, prior to steroid injection. At this point, 2cc or 20mg of dexamethasone was then injected without incident. The patient tolerated the procedure well without signs or symptoms of comp lications prior to being transferred to the recovery area for further monitoring, The patient was then transferred to the recovery area where they were observed for an appropriate period of time after the injection. The patient reported a VAS score of 7 prior to the procedure and a post-procedure VAS of 1. POST OP INSTRUCTIONS The patient was provided a Pain Log to continue to record their response to the target-specific procedure prior to follow-up visit with the referring provider. Additionally, specific post-injection care instructions and a contact number to our office were provided if concerns arise regarding possible complications associated with the procedure are suspected.
--- NOTE | 2024-06-16 10:32 | PC.NURSE ---
patient encouraged to see his PCP for his unspecified arrythmia LACY per Dr. Ballard
== END 2024-06-16 10:13 | disposition home or self-care (01) ==
PROVIDERS: PCP Family Medicine; Referring Provider Physical Medicine & Rehabilitation; Visit Provider Physical Medicine & Rehabilitation
DX: M48.02 Spinal stenosis, cervical region (principal); M50.123 Cervical disc disorder at C6-C7 level with radiculopathy
CPT/HCPCS: 62321; 99152; J1100; J2250; J3490

== ENCOUNTER → 2024-08-12 10:07 | Outpatient (CLI) | payer MEDICARE, OTHER, SELFPAY ==
[2024-08-12 18:08] LABS: Add Manual Diff / Slide Review NO; Basophils Absolute Auto 100 /uL (0-100); Basophils Percent Auto 1.5 % (0-2); Eosinophils Absolute Auto 100 /uL (0-450); Eosinophils Percent Auto 1.7 % (2-4); Hematocrit 41.6 % (41-53); Lymphocytes Absolute Auto 1400 /uL (1100-4500); Lymphocytes Percent Auto 21.7 % (25-40); Mean Corpuscular HGB Conc 33.7 % (30-36); Mean Corpuscular Hemoglobin 31.4 PG (26-34); Mean Corpuscular Volume 93.4 fL (80-100); Monocytes Absolute Auto 600 /uL (0-900); Monocytes Percent Auto 9.3 % (3-14); Neutrophils Absolute Auto 4200 /uL (1500-7000); Neutrophils Percent Auto 65.8 % (50-75); Platelet Count 260 X10^3/uL (150-400); Red Blood Cell Count 4.46 X10^6/uL (4.5-5.9); Red Cell Distribution Width 13.7 % (11.6-14.8); White Blood Cell Count 6.4 X10^3/uL (4.5-11.0)
[2024-08-12 18:11] LABS: Alanine Aminotransferase 15 IU/L (<50); Albumin 4.8 g/dL (3.5-5.0); Albumin Globulin Ratio 1.7 (1.0-2.8); Alkaline Phosphatase 61 U/L (38-126); Aspartate Aminotransferase 29 IU/L (17-59); BUN Creatinine Ratio 23.5 (6-22); Blood Urea Nitrogen 24 mg/dL (9-20); Calcium 9.9 mg/dL (8.4-10.2); Carbon Dioxide 25 mmol/L (22-32); Chloride 104 mmol/L (98-107); Cholesterol 218 mg/dL (140-199); Estimated Glomerular Filt Rate > 60 mL/min (>60); Globulin 2.8 g/dL (1.7-4.1); Glucose 85 mg/dL (80-110); HDL Cholesterol 97 mg/dL (40-60); HEMOLYSIS 21 (0-50); LDL Cholesterol Calculated 110 mg/dL (<100); Potassium 5.3 mmol/L (3.4-5.1); Sodium 138 mmol/L (137-145); Total Protein 7.6 g/dL (6.3-8.2); Triglycerides 54 mg/dL (35-150)
[2024-08-12 18:42] LABS: Prostate Specific Antigen Scrn 2.53 ng/mL (0.1-4.0)
[2024-08-23 00:38] LABS: Percent Free Testosterone 2.22 % (1.50-4.20); Testosterone Free 9.88 ng/dL (5.00-21.00); Testosterone Total 444.9 ng/dL (264.0-916.0)
== END ==
PROVIDERS: PCP Family Medicine; Visit Provider Family Medicine
DX: D64.9 Anemia, unspecified (principal); Z12.5 Encounter for screening for malignant neoplasm of prostate; I10 Essential (primary) hypertension; R68.82 Decreased libido; E29.1 Testicular hypofunction; Z13.220 Encounter for screening for lipoid disorders; Z71.85 Encounter for immunization safety counseling; Z13.6 Encounter for screening for cardiovascular disorders; N52.9 Male erectile dysfunction, unspecified; Z13.1 Encounter for screening for diabetes mellitus; G62.9 Polyneuropathy, unspecified
CPT/HCPCS: 80053; 80061; 84402; 84403; 85025; G0103

== ENCOUNTER 2024-08-23 08:59 | Outpatient (CLI) | payer MEDICARE, OTHER, SELFPAY ==
[2024-08-23] VITALS (8 sets, daily range): BP systolic 118–152; BP diastolic 72–80; PULSE 58–67; RESP 13–18; TEMP 36.4; O2SAT 97–100
[2024-08-23] MEDS: MIDAZOLAM 2 MG/2 ML VIAL 1 MG IV (09:51)
[2024-08-23] MEDS: DEXAMETHASONE 10 MG/ML VIAL 20 MG INJ (10:02)
[2024-08-23] MEDS: BUPIVACAINE 0.5% (PF) 10 ML VIAL 2 ML INJ (10:02)
[2024-08-23] MEDS: iopamidoL 15 ML VIAL 3 ML INJ (10:03)
--- NOTE | 2024-08-23 10:11 | P.PCN_ITS ---
Date/Time/Diagnoses Date of procedure: 08/23/24 Time of procedure: 10:11 Pre-procedure diagnosis: 1. FACET ARTHROPATHY 2. AXIAL NECK PAIN Post-procedure diagnosis: same Procedure Notes Procedure: 1. FLUOROSCOPICALLY GUIDED, CONTRAST-CONTROLLED LEFT C3/4 AND C6/7 FACET JOINT INJECTIONS WITH CONSCIOUS SEDATION. Indications: Marco A is referred by Dr. Bashir for treatment of Axial Neck Pain Physician: Juan Ballard Total Fluoroscopy time (seconds): 12 Total sedation minutes: 15 Complications: none Procedure in detail & Post-procedure care: DESCRIPTION OF PROCEDURE Fluoroscopically guided, contrast-controlled left C3/4 and C6/7 facet joint injections with conscious sedation. Following review of allergy and review of potential side effects and complications, including, but not necessarily limited to, infection, allergic reaction, local tissue breakdown, stroke, temporary or permanent nerve injury and paralysis, the patient indicated that the patient understood and agreed to proceed. An informed consent document was signed by the patient, witnessed by a nurse, and placed in the patient's chart. Additionally, other treatment options including medications, modalities, and physical therapy were reviewed with the patient. After review of previous anaesthesic history and IV conscious sedation the patient was deemed safe to proceed with today?s procedure with IV conscious sedation as ASA class II designation. Safety time-out was performed to confirm patient ID, procedure to be performed and site of procedure. IV sedation was accomplished with a combination of 1mg of Versed was administered by the RN after DO order, titrated to patient comfort during the course of the procedure while the patient remained responsive to all verbal commands In the prone position, following sterile prep and drape of the cervical spine region, the posterior aspect of the left C3/4 and C6/7 facet joints were identified fluoroscopically. The skin was anesthetized via a 25-gauge 1.5-inch needle with 1% lidocaine solution into the corresponding facet joints. At this point, a 25-gauge 2.5-inch spinal needle was atraumatically introduced and advanced under fluoroscopic guidance into the corresponding facet joints. Following negative aspiration, injections of approximately 0.2cc of Isovue 200 confirmed interarticular placement without vascular uptake. At this point, a total of 1cc including 0.5cc or 5mg of dexamethasone combined with 0.5cc of 1% lidocaine solution was injected without complication into each of the corresponding facet joints. The procedure tolerated the procedure well without signs or symptoms of complications prior to transfer to the recovery area continued monitoring without incident. The patient was then transferred to the recovery area where they were observed for an appropriate period of time after the injection. The patient reported a VAS score of 7 prior to the procedure and a post- procedure VAS of 0. POST OP INSTRUCTIONS They were provided a Pain Log to continue to record their response to the target-specific procedure prior to their follow-up visit with their referring physician. Additionally, specific post-injection care instructions and a contact number to our office were provided if concerns arise regarding possible complications associated with the procedure are suspected.
== END 2024-08-23 10:28 | disposition home or self-care (01) ==
LOC: RAD 08:59
PROVIDERS: PCP Family Medicine; Referring Provider Physical Medicine & Rehabilitation; Visit Provider Physical Medicine & Rehabilitation
DX: M47.812 Spondylosis without myelopathy or radiculopathy, cervical region (principal)
CPT/HCPCS: 64490; 64491; 99152; J1100; J2250

== ENCOUNTER → 2024-08-31 11:00 | Outpatient (CLI) | payer MEDICARE, OTHER, SELFPAY ==
[2024-08-31 18:55] LABS: Add Manual Diff / Slide Review NO; Basophils Absolute Auto 100 /uL (0-100); Basophils Percent Auto 1.3 % (0-2); Eosinophils Absolute Auto 100 /uL (0-450); Eosinophils Percent Auto 1.7 % (2-4); Hematocrit 39.1 % (41-53); Hemoglobin 13.2 g/dL (13.5-17.5); Lymphocytes Absolute Auto 1500 /uL (1100-4500); Lymphocytes Percent Auto 19.9 % (25-40); Mean Corpuscular HGB Conc 33.7 % (30-36); Mean Corpuscular Hemoglobin 31.7 PG (26-34); Monocytes Absolute Auto 700 /uL (0-900); Monocytes Percent Auto 9.5 % (3-14); Neutrophils Absolute Auto 5200 /uL (1500-7000); Neutrophils Percent Auto 67.6 % (50-75); Platelet Count 243 X10^3/uL (150-400); Red Blood Cell Count 4.16 X10^6/uL (4.5-5.9); Red Cell Distribution Width 13.7 % (11.6-14.8); White Blood Cell Count 7.8 X10^3/uL (4.5-11.0)
[2024-08-31 19:48] LABS: Prostate Specific Antigen Scrn 2.69 ng/mL (0.1-4.0)
[2024-09-13 09:09] LABS: Testosterone Free 19.46 ng/dL (5.00-21.00); Testosterone Total 778.3 ng/dL (264.0-916.0)
== END ==
PROVIDERS: PCP Family Medicine; Visit Provider Family Medicine
DX: Z12.5 Encounter for screening for malignant neoplasm of prostate (principal); Z51.81 Encounter for therapeutic drug level monitoring; Z79.890 Hormone replacement therapy
CPT/HCPCS: 84402; 84403; 85025; G0103

== ENCOUNTER → 2024-11-21 14:46 | Outpatient (CLI) | payer MEDICARE, OTHER, SELFPAY ==
--- NOTE | 2024-11-21 14:48 | DI.CT.S_ITS ---
PROCEDURE: CT CHEST WO CON INDICATIONS: GROUND GLASS OPACITY ON IMAGING OF LUNG TECHNIQUE: Noncontrast 5 mm thick sections acquired from the pulmonary apices to the posterior costophrenic angles. 1 mm lung window, 5 mm thick coronal and sagittal and 7 mm axial MIP reformats were then acquired. For radiation dose reduction, the following was used: automated exposure control, adjustment of mA and/or kV according to patient size. COMPARISON: [facility], CT, CT CHEST WO CON, 03/01/2019, 13:38. [facility], CT, CT CHEST ABD PEL W CON, 03/25/2024, 10:18. FINDINGS: Image quality: Diagnostic. Lower Neck: No enlarged lymph nodes. Thyroid: No thyroid nodules which require sonographic follow up, per consensus guidelines. Axillae: No enlarged lymph nodes. Chest Wall: Unremarkable. Bones: Unremarkable. Lungs and Pleura: No pneumothorax or pleural effusions. There is stable degree of advanced partial right middle lobe collapse, with stable attenuation of the right middle lobar bronchi centrally. No new focal lesion seen. Heart: Heart size is normal. No pericardial effusion. Thoracic Vessels: Top-normal caliber of the ascending aorta measuring 4 cm. Mediastinum and Vangie: No enlarged lymph nodes. Esophagus: No wall thickening. No hiatal hernia. Upper Abdomen: Visualized upper abdomen solid organs and bowel loops appear normal. IMPRESSION: 1. There is persistent advanced partial right middle lobe collapse, with some attenuation of the right middle lobar bronchi centrally. 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 2. No superimposed acute abnormality at this time. Dictated by: Valente Carroll M.D. on 11/21/2024 at 17:34 Approved by: Vlaente Carroll M.D. on 11/21/2024 at 17:40
== END ==
PROVIDERS: PCP Family Medicine; Referring Provider Internal Medicine; Visit Provider Internal Medicine
DX: J98.19 Other pulmonary collapse (principal); R91.8 Other nonspecific abnormal finding of lung field
CPT/HCPCS: 71250

== ENCOUNTER → 2025-04-25 08:52 | Outpatient (CLI) | payer MEDICARE, OTHER, SELFPAY ==
[2025-04-25 19:57] LABS: Add Manual Diff / Slide Review NO; Hematocrit 39.2 % (41-53); Hemoglobin 13.2 g/dL (13.5-17.5); Lymphocytes Absolute Auto 1800 /uL (1100-4500); Mean Corpuscular HGB Conc 33.7 % (30-36); Mean Corpuscular Hemoglobin 31.1 PG (26-34); Mean Corpuscular Volume 92.3 fL (80-100); Platelet Count 265 X10^3/uL (150-400)
[2025-04-25 20:05] LABS: HEMOLYSIS < 15 (0-50); Iron 100 ug/dL (49-181)
[2025-04-25 20:11] LABS: Alanine Aminotransferase 12 IU/L (<50); Albumin 4.2 g/dL (3.5-5.0); Albumin Globulin Ratio 1.5 (1.0-2.8); Alkaline Phosphatase 62 U/L (38-126); Blood Urea Nitrogen 23 mg/dL (9-20); Calcium 9.6 mg/dL (8.4-10.2); Carbon Dioxide 27 mmol/L (22-32); Chloride 106 mmol/L (98-107); Cholesterol 188 mg/dL (140-199); Estimated Glomerular Filt Rate > 60 mL/min (>60); Globulin 2.8 g/dL (1.7-4.1); Glucose 88 mg/dL (70-99); HDL Cholesterol 89 mg/dL (40-60); HEMOLYSIS < 15 (0-50); Potassium 4.9 mmol/L (3.4-5.1); Sodium 140 mmol/L (137-145); Total Protein 7.0 g/dL (6.3-8.2); Triglycerides 48 mg/dL (35-150)
[2025-04-25 20:17] LABS: Percent Iron Saturation 41 % (20-50); Total Iron Binding Capacity 243 ug/dL (261-462); Transferrin 195 mg/dL (206-381)
[2025-04-25 20:38] LABS: TSH w/ Reflex to FT4 2.21 uIU/mL (0.47-4.68)
[2025-04-25 20:56] LABS: Vitamin B12 664 pg/mL (239-931)
== END ==
PROVIDERS: PCP Family Medicine; Visit Provider Family Medicine
DX: Z13.6 Encounter for screening for cardiovascular disorders (principal); D64.9 Anemia, unspecified; J45.40 Moderate persistent asthma, uncomplicated; J82.83 Eosinophilic asthma; E29.1 Testicular hypofunction; G62.9 Polyneuropathy, unspecified
CPT/HCPCS: 80053; 80061; 82607; 83540; 83550; 84443; 85025